=== PATIENT | female | born 2000 | race Caucasian/White ===

== ENCOUNTER 2020-10-10 00:01 | Inpatient (IN) | payer OTHER ==
[~2020-10-10] VITALS: Ht 154.9 cm; Wt 78.5 kg
[~2020-10-10 00:01] MED LIST: PROZAC40 MG PO
--- NOTE | 2020-10-10 12:36 | PR ---
[facility] [address] [facility] [place] [place] [address] Signed Progress Notes IP Datetime Report Generated by CPN: 10/10/2020 12:36 PROGRESS NOTES: [id number] Impression: Normal Progression of Labor Procedures: Sterile Vag Exam Plan: Anesthesia Consult VITAL SIGNS: [id number] Vital Signs: Reviewed; Within Normal Limits EXAM: [id number] Dilatation: 3.0 Effacement: 80 Station: -2 Contractions: q 2 to 3 min MEMBRANES: [id number] Comments: Progressing. She is getting more uncomfortable and desires epidural. FETUS A: [id number] FHR Baseline: 130 Variability: Moderate 6-25bpm Accelerations: 15X15 Decelerations: None FHR Category: Category I Presentation: Vertex Comments on Fetus A: No evidence of metabolic acidosis FETUS B: [id number] Signing Physician: Nan Walden MD Copies: ~ *Electronically Signed* 10/10/20 1236 NAN WALDEN MD PATIENT NAME: FABRICE LEAHY PROGRESS NOTE DATE OF : 98 PHYSICIAN: NAN WALDEN MD RPT #: [id number] REPORT IS CONFIDENTIAL AND NOT TO BE RELEASED WITHOUT AUTHORIZATION
--- NOTE | 2020-10-10 17:12 | PR ---
[facility] [address] [facility] [place], [place] [address] Signed Progress Notes IP Datetime Report Generated by CPN: 10/10/2020 17:12 PROGRESS NOTES: [id number] Impression: Arrest of Dilatation/Descent Procedures: Intrauterine Pressure Catheter; Sterile Vag Exam Plan: Augmentation VITAL SIGNS: [id number] Vital Signs: Reviewed; Within Normal Limits EXAM: [id number] Dilatation: 4.0 Effacement: 90 Station: -2 Contractions: q 2 to 3 min MEMBRANES: [id number] Comments: Very slow progress. Suspect contractions inadequate. Will place IUPC and add pit as needed. FETUS A: [id number] FHR Baseline: 130 Variability: Moderate 6-25bpm Accelerations: 15X15 Decelerations: None FHR Category: Category I Presentation: Vertex Comments on Fetus A: No evidence of metabolic acidosis FETUS B: [id number] Signing Physician: Nan Walden MD Copies: ~ *Electronically Signed* 10/10/20 1712 NAN WALDEN MD PATIENT NAME: KAITLINFABRICE BARNETT PROGRESS NOTE DATE OF : 98 PHYSICIAN: NAN WALDEN MD RPT #: [id number] REPORT IS CONFIDENTIAL AND NOT TO BE RELEASED WITHOUT AUTHORIZATION
--- NOTE | 2020-10-10 19:25 | PR ---
[facility] [address] [place], [place] [address] Signed Progress Notes IP Datetime Report Generated by CPN: 10/10/2020 19:25 PROGRESS NOTES: [id number] Impression: Arrest of Dilatation/Descent; Reassuring Heart Rate Procedures: Sterile Vag Exam Plan: Continue Present Management VITAL SIGNS: [id number] Vital Signs: Reviewed; Within Normal Limits EXAM: [id number] Dilatation: 4.0 Effacement: 90 Station: -2 Contractions: q 2 to 3 min MEMBRANES: [id number] Comments: Getting uncomfortable again. No change in exam. Will redose epidural and continue to increase pitocin with position changes. FETUS A: [id number] FHR Baseline: 130 Variability: Moderate 6-25bpm Accelerations: 15X15 Decelerations: None FHR Category: Category I Presentation: Vertex Comments on Fetus A: No evidence of metabolic acidosis FETUS B: [id number] Signing Physician: Nan Walden MD Copies: ~ *Electronically Signed* 10/10/20 1925 NAN WALDEN MD PATIENT NAME: TOSINFABRICE Gabe PROGRESS NOTE DATE OF : 98 PHYSICIAN: NAN WALDEN MD RPT #: [id number] REPORT IS CONFIDENTIAL AND NOT TO BE RELEASED WITHOUT AUTHORIZATION
--- NOTE | 2020-10-10 22:09 | PR ---
[facility] [address] [place], [place] [address] Signed Progress Notes IP Datetime Report Generated by CPN: 10/10/2020 22:08 PROGRESS NOTES: [id number] Impression: Arrest of Dilatation/Descent; Non-reassuring Heart Rate Procedures: Sterile Vag Exam Plan: Continue Present Management Other Plans: stop pit, position changes VITAL SIGNS: [id number] Vital Signs: Reviewed; Within Normal Limits EXAM: [id number] Dilatation: 4.0 Effacement: 90 Station: -2 Contractions: q 2 to 3 min MEMBRANES: [id number] Comments: Comfortable. No progress as yet. Recent decels which appear improved off pitocin and with position changes. Will continue close observation but will hopefully be able to restart pit after recovery. FETUS A: [id number] FHR Baseline: 130 Variability: Moderate 6-25bpm Accelerations: 15X15 Decelerations: None FHR Category: Category I Presentation: Vertex Comments on Fetus A: No evidence of metabolic acidosis FETUS B: [id number] Signing Physician: Nan Walden MD Copies: ~ *Electronically Signed* 10/10/20 7519 NAN WALDEN MD PATIENT NAME: FABRICE LEAHY PROGRESS NOTE DATE OF : 98 PHYSICIAN: NAN WALDEN MD RPT #: [id number] REPORT IS CONFIDENTIAL AND NOT TO BE RELEASED WITHOUT AUTHORIZATION
--- NOTE | 2020-10-12 07:38 | PR ---
[facility] [address] [place], [place] [address] Signed PP Progress Notes Datetime Report Generated by CPN: 10/12/2020 07:38 SUBJECTIVE: [id number] Pain: Within Normal Limits Nausea/Vomiting: Denies Flatus: Yes Bowel Movement: No Vital Signs: [id number] Vital Signs: Reviewed; Within Normal Limits Cardiovascular: Normal Respiratory: Normal Abdomen/Uterus: Normal Lochia: Normal Vulva/Perineum: Normal Extremities: Normal Progress: Normal Exam Comments: Appears well RRR, trace lower extremity edema Fundus firm below umbilicus Perineum without swelling/bruising IMPRESSION/PLAN/PROCEDURES: [id number] Impression: Normal Progression Plan: Continue Present Management; Discharge Other Plans: Await spontaneous void Progress Notes: PPD#1 s/p VAVD at 40 weeks gestation -progressing well -flores just removed, awaiting spontaneous void -hgb 10.5 from ., VSS - well -undecided re: contraception Anticipate DC to home today pending spontaneous void Reviewed discharge precautions Signing Physician: Naseem Adam DO Copies: *Electronically Signed* 10/12/20 0738 NASEEM ADAM DO PATIENT NAME: FABRICE LEAHY PROGRESS NOTE DATE OF : 98 PHYSICIAN: NASEEM ADAM DO RPT #: [id number] REPORT IS CONFIDENTIAL AND NOT TO BE RELEASED WITHOUT AUTHORIZATION [address], [place] [address] Signed ~ *Electronically Signed* 10/12/20 0738 NASEEM ADAM DO PATIENT NAME: FABRICE LEAHY PROGRESS NOTE DATE OF : 98 PHYSICIAN: NASEEM ADAM DO RPT #: [id number] REPORT IS CONFIDENTIAL AND NOT TO BE RELEASED WITHOUT AUTHORIZATION
== END 2020-10-12 13:30 | disposition home or self-care (01) | DRG 768 ==
LOC: FBC 00:01
PROVIDERS: ADMIT Obstetrics & Gynecology; ATTEND Obstetrics & Gynecology
PROC: 3E0P7VZ Introduction of Hormone into Female Reproductive, Via Natural or Artificial Opening (ICD-10-PCS; 2020-10-10)
PROC: 10907ZC Drainage of Amniotic Fluid, Therapeutic from Products of Conception, Via Natural or Artificial Opening (ICD-10-PCS; 2020-10-10)
PROC: 10H07YZ Insertion of Other Device into Products of Conception, Via Natural or Artificial Opening (ICD-10-PCS; 2020-10-10)
PROC: 00HU33Z Insertion of Infusion Device into Spinal Canal, Percutaneous Approach (ICD-10-PCS; 2020-10-10)
PROC: 3E0R3BZ Introduction of Anesthetic Agent into Spinal Canal, Percutaneous Approach (ICD-10-PCS; 2020-10-10)
PROC: 10D07Z6 Extraction of Products of Conception, Vacuum, Via Natural or Artificial Opening (ICD-10-PCS; principal; 2020-10-11)
PROC: 0DQR0ZZ Repair Anal Sphincter, Open Approach (ICD-10-PCS; 2020-10-11)
PROC: 0W8NXZZ Division of Female Perineum, External Approach (ICD-10-PCS; 2020-10-11)
PROC: 3E0234Z Introduction of Serum, Toxoid and Vaccine into Muscle, Percutaneous Approach (ICD-10-PCS; 2020-10-12)
DX: O62.1 Secondary uterine inertia (principal); Z37.0 Single live birth; O70.20 Third degree perineal laceration during delivery, unspecified; Z3A.40 40 weeks gestation of pregnancy; O76 Abnormality in fetal heart rate and rhythm complicating labor and delivery; O69.1XX0 Labor and delivery complicated by cord around neck, with compression, not applicable or unspecified; O77.0 Labor and delivery complicated by meconium in amniotic fluid; O26.893 Other specified pregnancy related conditions, third trimester; Z67.11 Type A blood, Rh negative; Z88.0 Allergy status to penicillin; Z87.891 Personal history of nicotine dependence
CPT/HCPCS: 36415; 82803; 83030; 85027; 86850; 86900; 86901; A9270; J2001; J2405; J2590; J2790; J2795; J3010